=== PATIENT | female | born 1955 | race Caucasian/White ===

== ENCOUNTER 2018-07-15 10:15 | Emergency (ER) | payer SELFPAY ==
--- NOTE | 2018-07-15 13:14 | RAD ---
RADIOGRAPH RIGHT SHOULDER THREE VIEWS: History: 62-year-old female with traumatic right shoulder joint pain after fall. FINDINGS: There is a portion of an oblique fracture at the lateral aspect of the right humeral surgical neck, w ith minimal displacement. Humeral head contour is maintained. No dislocation. IMPRESSION: Acute, traumatic, essentially nondisplaced, right humeral head/proximal metaphyseal fracture. POS: [facility]
== END 2018-07-15 12:45 | disposition home or self-care (01) ==
LOC: ERS 10:15
DX: S42.294A Other nondisplaced fracture of upper end of right humerus, initial encounter for closed fracture (principal); E11.9 Type 2 diabetes mellitus without complications; I10 Essential (primary) hypertension; M19.90 Unspecified osteoarthritis, unspecified site; F32.9 Major depressive disorder, single episode, unspecified; Z79.84 Long term (current) use of oral hypoglycemic drugs; Z79.899 Other long term (current) drug therapy; W19.XXXA Unspecified fall, initial encounter

== ENCOUNTER 2021-05-02 11:24 | Emergency (ER) | payer SELFPAY ==
[2021-05-02] MEDS ORDERED: Acetaminophen 500 MG TAB ONE (13:20)
[2021-05-02] MEDS ORDERED: Ketorolac Tromethamine 30 MG/ML VIAL ONE (13:20)
== END 2021-05-02 14:40 | disposition home or self-care (01) ==
LOC: ERS 11:24
DX: M25.561 Pain in right knee (principal); M25.562 Pain in left knee; M25.552 Pain in left hip; M54.50 Low back pain, unspecified; M54.2 Cervicalgia; G89.29 Other chronic pain; E11.9 Type 2 diabetes mellitus without complications; I10 Essential (primary) hypertension
CPT/HCPCS: J1885

== ENCOUNTER 2021-06-08 09:39 | Emergency (ER) | payer MEDICARE, SELFPAY | END 2021-06-08 13:30 | disposition home or self-care (01) | LOC: ERS 09:39 | DX: M25.551 Pain in right hip (principal); I10 Essential (primary) hypertension; E11.9 Type 2 diabetes mellitus without complications; M19.90 Unspecified osteoarthritis, unspecified site ==

== ENCOUNTER 2021-07-21 12:56 | Emergency (ER) | payer MEDICARE | END 2021-07-21 14:59 | disposition home or self-care (01) | LOC: ERS 12:56 | DX: M25.552 Pain in left hip (principal); M16.12 Unilateral primary osteoarthritis, left hip; I10 Essential (primary) hypertension; E11.9 Type 2 diabetes mellitus without complications; W06.XXXA Fall from bed, initial encounter | CPT/HCPCS: 72170 ==